=== PATIENT | male | born 1965 | race Caucasian/White ===

== ENCOUNTER → 2017-12-30 | Outpatient (CLI) | payer OTHER ==
[~2017-12-30] MED LIST: septra
--- NOTE | 2017-12-30 11:36 | DIAGNOSTIC IMAGING REPORT ---
ABD/PELVIS NO IV OR ORAL CONT CLINICAL HISTORY: 52 years-old Male presenting with w3642.42 history of spina bifida, congenital bowel problems, colostomy, kidney stones. TECHNIQUE: Multidetector CT of the abdomen and pelvis was performed without the use of intravenous contrast. IV contrast: None. A dose lowering technique was used consistent with the principles of ALARA (as low as reasonably achievable). COMPARISON: 10/03/2015. CT DOSE (mGy.cm): The estimated cumulative dose is 476.35 mGy.cm. FINDINGS: Railroad Carman topogram: Internal fixation hardware in the proximal metadiaphysis of the left femur. Cholecystectomy clips noted. Lung bases: Lungs and pleural spaces clear though mild bronchial wall thickening is evident in the lower lobes. Normal heart size. No pericardial or pleural effusion. Liver: Normal morphology. Normal density. Biliary: No gross biliary ductal dilatation allowing for noncontrast technique. Gallbladder surgically absent. Pancreas: Mild parenchymal atrophy. Spleen: Normal noncontrast appearance. Adrenal glands: Normal noncontrast appearance. Kidneys and ureters: Moderate left pelvocaliectasis. Mild distention of the right ureter without evidence of obstructing calculus or mass. Urothelial thickening is evident bilaterally. Mild right pelviectasis. Again no obstructing calculus or mass identified. Nonobstructing punctate right renal calculus in the interpolar region. Bladder: The bladder is abnormally elongated and thick-walled, which could suggest a neurogenic bladder or congenital abnormality. Pelvic organs: The prostate is poorly visualized. Bowel: Dense mild stool burden in the Carpenter's pouch, which includes the sigmoid colon. A descending colostomy is evident in the right mid abdomen. The appendix is normal. No bowel obstruction. A gastric diverticulum may be present at the fundus. Small bowel is grossly normal allowing for noncontrast technique. Peritoneal cavity: No free fluid or intraperitoneal gas. A catheter entering the peritoneum in the epigastrium terminates in the right upper quadrant without change or breakage evident. This likely represents a ventriculoperitoneal shunt. Lymph nodes: No enlarged lymph nodes in the abdomen or pelvis. Vasculature: Normal noncontrast appearance. Abdominal wall: No evidence of a parastomal hernia. No significant abnormality of the abdominal wall allowing for the presence of the stoma and shunt. Postsurgical changes of the bilateral inguinal regions suggested. An irregular low density collection along the right inguinal canal may represent encysted hydrocele no this is indeterminate without intravenous contrast. Musculoskeletal: Postsurgical changes of the proximal metadiaphysis of the left femur. Osteopenia. Wedging deformity of L1 with approximately 50% anterior vertebral body height loss consistent with compression fracture. This is unchanged from prior exam in 2016. Degenerative changes of the spine. IMPRESSION: 1. Dilated left renal collecting system and left ureter without evidence of an obstructing mass or calculus. Given the presence of bilateral urothelial thickening and mild right pelviectasis, this may represent bilateral flaccid renal collecting systems potentially in the presence of chronic reflux given the chronicity of the finding of urothelial thickening. Correlate with urinalysis to exclude superimposed infection. 2. Abnormal appearance of the bladder may indicated neurogenic bladder or congenital abnormality. 3. Postsurgical changes of partial sigmoidectomy with descending colostomy. No bowel obstruction. 4. Ventriculoperitoneal shunt terminating in the right upper quadrant. 5. Osteopenia with chronic compression fracture of L1. 6. Internal fixation of the left femur. 7. Mild bronchial wall thickening in the lower lobes is nonspecific and could be seen in the setting of bronchitis or congestive change. Electronically signed by: Elmer Noriega M.D. 12/30/2017 11:34 AM Dictated Date/Time: 12/30/2017 11:23 AM
== END | disposition home or self-care (01) ==
LOC: C.CTS 11:09
PROVIDERS: ATTEND Urology
DX: R39.0 Extravasation of urine (principal); R39.89 Other symptoms and signs involving the genitourinary system